=== PATIENT | female | born 1995 | race Two or more races ===

== ENCOUNTER 2018-07-27 11:32 | Emergency (ER) | payer OTHER ==
[~2018-07-27] VITALS: Ht 160 cm; Wt 61.7 kg
[~2018-07-27 11:32] MED LIST: FLONASE16 G1 NS; GILPHEX TR TAB1 EACH PO; PRENATAL + DHA1 EAC1
== END 2018-07-27 16:15 | disposition home or self-care (01) ==
LOC: ER 11:32
DX: O98.513 Other viral diseases complicating pregnancy, third trimester (principal); B34.9 Viral infection, unspecified; Z34.83 Encounter for supervision of other normal pregnancy, third trimester

== ENCOUNTER 2018-08-25 17:36 | Emergency (ER) | payer OTHER ==
[~2018-08-25] VITALS: Ht 160 cm; Wt 54.4 kg
== END 2018-08-25 19:20 | disposition home or self-care (01) ==
LOC: ER 17:36
DX: B34.9 Viral infection, unspecified (principal)

== ENCOUNTER 2018-10-13 13:48 | Emergency (ER) | payer OTHER ==
[~2018-10-13] VITALS: Ht 160 cm; Wt 53.5 kg
== END 2018-10-13 15:41 | disposition home or self-care (01) ==
LOC: ER 13:48
DX: B37.3 Candidiasis of vulva and vagina (principal)

== ENCOUNTER 2021-11-30 12:20 | Emergency (ER) | payer OTHER ==
[~2021-11-30] VITALS: Ht 162.6 cm; Wt 50.3 kg
== END 2021-11-30 17:08 | disposition home or self-care (01) ==
LOC: ER 12:20
DX: U07.1 COVID-19 (principal); R50.9 Fever, unspecified; R51.9 Headache, unspecified

== ENCOUNTER 2023-03-06 17:50 | Emergency (ER) | payer OTHER ==
[~2023-03-06] VITALS: Ht 162.6 cm; Wt 49.9 kg
[2023-03-06 19:27] LABS: CALCIUM 8.7 mg/dL (8.5-10.1); CREATININE SERUM 0.74 mg/dL (0.55-1.02); GFR 95.62; HEMATOCRIT 41.3 % (36.0-45.00); HEMOGLOBIN 13.9 g/dL (12.0-15.00); MEAN CELL VOLUME 91.3 fL (80.00-100.00); MEAN CORPUSCULAR HEMOGLOBIN 30.8 pg (27.00-32.0); MEAN CORPUSCULAR HGB CONC 33.7 g/dl (32.0-36.0); PLATELET COUNT 231 K/uL (150-450); POTASSIUM 3.75 mEq/L (3.5-5.1); RED BLOOD COUNT 4.53 M/uL (4.00-6.00); RED CELL DISTRIBUTION WIDTH 13.5 % (11.5-14.5)
[2023-03-06 20:27] LABS: PH,URINE 5.5 (5.0-8.0); URINE APPEARANCE Clear; URINE BILIRRUBIN Negative (NEGATIVE); URINE BLOOD Moderate; URINE COLOR Yellow; URINE GLUCOSE Negative (NEGATIVE); URINE LEUKOCYTE Small; URINE NITRATE Negative; URINE PROTEIN Trace (NEGATIVE)
[2023-03-06 20:31] LABS: URINE EPITHELIAL CELLS 36.6 uL (0.0-38.8); URINE RBC 47.2 uL (0.0-20.8); URINE WBC 276.5 uL (0.0-23.2)
[2023-03-06 20:49] LABS: URINE CRYSTALS FEW /HPF; URINE MUCUS MODERATE
[2023-03-06] MEDS ORDERED: DUI500 PO (21:36)
[2023-03-06] MEDS ORDERED: ONDANSETRON HCL4 MG PO (21:36)
[2023-03-06] MEDS ORDERED: INTESTINEX680 M1 PO (21:36)
[2023-03-06] MEDS ORDERED: PEPCID AC20 MG PO (21:36)
== END 2023-03-06 21:49 ==
LOC: ER 17:50
PROVIDERS: Nurse Practitioner Family
DX: N39.0 Urinary tract infection, site not specified (principal); R19.7 Diarrhea, unspecified; R10.13 Epigastric pain; Z20.822 Contact with and (suspected) exposure to COVID-19
CPT/HCPCS: 36415; 96365; 96366; 99284; J2405; J3490; J7042

== ENCOUNTER 2024-06-04 18:55 | Emergency (ER) | payer OTHER ==
[~2024-06-04] VITALS: Ht 162.6 cm; Wt 49.0 kg
[~2024-06-04 18:55] MED LIST changes: +DUI500 PO; +INTESTINEX680 M1 PO; +ONDANSETRON HCL4 MG PO; +PEPCID AC20 MG PO
[2024-06-04] MEDS ORDERED: FAMOtidine 10 MG/ML (4ML VIAL) IV ONE (20:30)
[2024-06-04 22:02] LABS: HEMATOCRIT 41.8 % (36.0-45.00); HEMOGLOBIN 14.1 g/dL (12.0-15.00); MEAN CELL VOLUME 91.5 fL (80.00-100.00); MEAN CORPUSCULAR HEMOGLOBIN 30.9 pg (27.00-32.0); MEAN CORPUSCULAR HGB CONC 33.8 g/dl (32.0-36.0); PLATELET COUNT 301 K/uL (150-450); RED BLOOD COUNT 4.57 M/uL (4.00-6.00); RED CELL DISTRIBUTION WIDTH 13.2 % (11.5-14.5)
[2024-06-04 22:03] LABS: PH,URINE 7.5 (5.0-8.0); URINE APPEARANCE Cloudy; URINE BILIRRUBIN Negative (NEGATIVE); URINE BLOOD Negative; URINE COLOR Yellow; URINE GLUCOSE Negative (NEGATIVE); URINE KETONE Trace (NEGATIVE); URINE LEUKOCYTE Small; URINE NITRATE Negative; URINE PROTEIN Negative (NEGATIVE)
[2024-06-04 22:06] LABS: URINE BACTERIA 4316.8 uL (0.0-1933); URINE RBC 14.4 uL (0.0-20.8); URINE WBC 132.5 uL (0.0-23.2)
[2024-06-04 22:40] LABS: ALBUMIN 4.1 gm/dL (3.4-5.0); BILIRUBIN TOTAL 0.61 mg/dL (0.3-1.2); CALCIUM 9.3 mg/dL (8.5-10.1); CREATININE SERUM 1.07 mg/dL (0.55-1.02); GFR 61.98; GLOBULINA 3.5 G/DL (2.4-3.5); POTASSIUM 3.97 mEq/L (3.5-5.1); TOTAL PROTEIN 7.6 gm/dL (6.4-8.2)
[2024-06-04 22:50] LABS: URINE CAST 0.88 uL (0.0-1.40)
[2024-06-04 22:52] LABS: URINE YEAST MANY /hpf
[2024-06-05] MEDS ORDERED: FLUCONAZOLE200 MG PO (00:13)
[2024-06-05] MEDS ORDERED: MACROBID 100 M100 MG PO (00:13)
== END 2024-06-05 00:17 | disposition home or self-care (01) ==
LOC: ER 18:57
PROVIDERS: Preventive Medicine Public Health & General Preventive Medicine
DX: N39.0 Urinary tract infection, site not specified (principal); R10.9 Unspecified abdominal pain; E03.8 Other specified hypothyroidism; Z20.822 Contact with and (suspected) exposure to COVID-19

== ENCOUNTER 2024-06-08 14:27 | Outpatient (CLI) | payer OTHER | END 2024-06-08 14:31 | disposition home or self-care (01) | LOC: SONOGRAMA 14:27 | PROVIDERS: ATTEND General Practice | DX: N63.0 Unspecified lump in unspecified breast (principal) ==

== ENCOUNTER → 2024-06-08 | Emergency (ER) | payer OTHER ==
[~2024-06-08] VITALS: Ht 162.6 cm; Wt 50.8 kg
[~2024-06-08] MED LIST changes: +FLUCONAZOLE200 MG PO; +MACROBID 100 M100 MG PO
== END | disposition home or self-care (01) ==
LOC: ER 08:35
DX: N63.10 Unspecified lump in the right breast, unspecified quadrant (principal); E03.8 Other specified hypothyroidism

== ENCOUNTER 2024-07-12 15:37 | Emergency (ER) | payer OTHER ==
[~2024-07-12] VITALS: Ht 170.2 cm; Wt 49.9 kg
[2024-07-12] MEDS ORDERED: 0.9 % SODIUM CHLORIDE 1,000 ML IV STA (16:46)
[2024-07-12 17:09] LABS: HEMATOCRIT 42.8 % (36.0-45.00); HEMOGLOBIN 14.2 g/dL (12.0-15.00); MEAN CELL VOLUME 91.4 fL (80.00-100.00); MEAN CORPUSCULAR HEMOGLOBIN 30.4 pg (27.00-32.0); MEAN CORPUSCULAR HGB CONC 33.2 g/dl (32.0-36.0); PLATELET COUNT 248 K/uL (150-450); RED BLOOD COUNT 4.68 M/uL (4.00-6.00); RED CELL DISTRIBUTION WIDTH 13.9 % (11.5-14.5)
[2024-07-12 17:41] LABS: CALCIUM 9.2 mg/dL (8.5-10.1); CREATININE SERUM 0.77 mg/dL (0.55-1.02); GFR 90.61; POTASSIUM 3.59 mEq/L (3.5-5.1)
[2024-07-12 20:30] LABS: URINE APPEARANCE Cloudy; URINE BILIRRUBIN Negative (NEGATIVE); URINE BLOOD Negative; URINE COLOR Yellow; URINE GLUCOSE Negative (NEGATIVE); URINE LEUKOCYTE Moderate; URINE NITRATE Negative; URINE PROTEIN 30 (NEGATIVE)
[2024-07-12 20:34] LABS: URINE BACTERIA 4201.9 uL (0.0-1933); URINE EPITHELIAL CELLS 96.1 uL (0.0-38.8); URINE RBC 45.6 uL (0.0-20.8); URINE WBC 480.5 uL (0.0-23.2)
[2024-07-12] MEDS ORDERED: METRONIDAZOLE/SODIUM CHLORIDE 500 MG/100 ML PIGGYBACK IV ONE (21:00)
[2024-07-12] MEDS ORDERED: CIPROFLOXACIN IN 5 % DEXTROSE 400 MG/200 ML PIGGYBAG IV ONE (21:00)
[2024-07-12 21:06] LABS: URINE CAST 0.44 uL (0.0-1.40); URINE KETONE 80 (NEGATIVE); URINE MUCUS MODERATE
== END 2024-07-12 21:29 | disposition home or self-care (01) ==
LOC: ER 15:39
PROVIDERS: Emergency Medicine
DX: K52.89 Other specified noninfective gastroenteritis and colitis (principal)

== ENCOUNTER 2025-03-05 18:24 | Emergency (ER) | payer OTHER ==
[~2025-03-05] VITALS: Ht 160 cm; Wt 59.0 kg
[2025-03-05] MEDS ORDERED: METHYLPREDNISOLONE SOD SUCC 125 MG VIAL IM ONE (19:30)
[2025-03-05] MEDS ORDERED: DIPHENHYDRAMINE HCL 50 MG/ML VIAL 1ML IM ONE (19:30)
[2025-03-05] MEDS ORDERED: MEDROLPACK PO (19:38)
[2025-03-05] MEDS ORDERED: ZYRTEC10 MG PO (19:38)
[2025-03-05] MEDS ORDERED: DIPHENHYDRAMINE HCL 50 MG/ML VIAL 1ML ONE (19:40)
[2025-03-05] MEDS ORDERED: METHYLPREDNISOLONE SOD SUCC 125 MG VIAL ONE (19:40)
== END 2025-03-05 21:24 ==
LOC: ER 18:25
DX: T63.441A Toxic effect of venom of bees, accidental (unintentional), initial encounter (principal)